=== PATIENT | male | born 1960 | race Caucasian/White ===

== ENCOUNTER → 2018-01-07 | Day surgery (SDC) | payer OTHER ==
[~2018-01-07] MED LIST: ALLERGY OTC PO; FENTANYL CITRATE/PF 100MCG/2 ML INJ ONE; FLOMAX PO; GLUCAGON FOR INJ 1 MG VIAL ONE; HYOSCYAMINE SULFATE 0.5 MG/ML AMP ONE; LIDOCAINE HCL 2% LOCAL INJ 5 ML SDV VIAL INJ ONE; MIDAZOLAM HCL 2 MG/2 ML VIAL ONE; PANTOPRAZOLE SO40 MG PO; PROPOFOL IV EMULSION 10 MG/ML 50 ML VIAL ONE; SIMVASTATIN PO
--- NOTE | 2018-01-07 13:34 | Diagnostic Imaging Report ---
EXAM: ABDOMINAL ULTRASOUND Date: 01/07/2018 11:45 AM Indication: Pain Comparison: None Technique: Sonographic evaluation of the abdomen. Color doppler was utilized to supplement evaluation. FINDINGS: LIVER: No focal lesion is identified. The liver measures 13.3 cm in the right midclavicular line. Echotexture is normal. BILIARY: Limited evaluation due to body habitus and overlying bowel gas. No distinct shadowing gallstones. The common bile duct measures 0.5 cm. PANCREAS: Largely obscured by bowel gas. KIDNEYS: Right: Measures 10.9 cm in length. Left: Measures 11.2 cm in length. Other: No hydronephrosis or solid mass lesion identified. SPLEEN: No splenomegaly. PERITONEUM: No free fluid. VASCULATURE: Aorta: Visualized portions appear unremarkable. Interior vena cava: Visualized portions appear unremarkable. Portal Vein: Nondilated with hepatopedal flow. IMPRESSION: Within limitations of body habitus and overlying bowel gas, no definite acute abnormality. Signed by: Dr. Chris Arana MD on 01/07/2018 1:31 PM
--- NOTE | 2018-01-07 17:23 | Operative Report ---
DATE OF PROCEDURE: January 07, 2018 REFERRING PHYSICIAN: Dr. Jovana Ghosh PROCEDURES PERFORMED 1. Esophagogastroduodenoscopy with biopsies. 2. Colonoscopy with polypectomy and biopsies. INDICATIONS FOR ESOPHAGOGASTRODUODENOSCOPY: Upper abdominal pain, heartburn, and indigestion. INDICATIONS FOR COLONOSCOPY: Colorectal cancer screening, history of colon polyps, and diarrhea, intermittent. MEDICATION: Patient was done under MAC. Please see anesthesiologist's note. PROCEDURE: With the patient in left lateral decubitus position, flexible fiberoptic Olympus gastroscope was introduced into the esophagus under direct visualization without any difficulty. There was some patchy erythema noted in the distal esophagus. A minute nodule was noted at the GE junction that was biopsied. The scope was then advanced with ease into the stomach, traversing a small sliding hiatal hernia. Mucosa overlying the antrum and the body revealed some patchy erythema and [id number] edema and biopsies were obtained and sent to stain for H. pylori. Pylorus appeared to be of normal contour and shape, was intubated with ease, and the scope was advanced all the way to the second portion of the duodenum. The scope was then withdrawn slowly. Mucosa overlying the proximal second portion appeared to be within normal limits. There some patchy intense erythema noted in the duodenal bulb. The scope was then withdrawn back into the stomach and retroflexed, and mucosa overlying the fundus and the cardia appeared to be within normal limits. The scope was then straightened out, was subsequently withdrawn. Patient tolerated the procedure well. IMPRESSION 1. Distal esophagitis. 2. Minute nodule gastroesophageal junction, biopsied. 3. Small sliding hiatal hernia. 4. Gastritis, biopsied. Biopsy sent to stain for Helicobacter pylori. 5. Duodenitis. PLAN: Follow up histology. Increase Protonix to 40 mg 1 p.o. a c b.i.d. Patient was then turned around. After adequate lubrication of the anal canal, flexible fiberoptic Olympus colonoscope was inserted into the rectum with ease and advanced all the way to the cecum. One polyp was snared from the cecum. The ileocecal valve was intubated and the scope was advanced into the terminal ileum. There were some patchy areas of intense erythema and moderate edema and biopsies were obtained. The scope was then withdrawn back into the colon. It was then withdrawn slowly. One polyp was hot biopsied from the ascending colon. The transverse appeared to be within normal limits. Some patchy mild inflammatory changes were noted in the left colon and multiple random biopsies were obtained. Also, there were some scattered minimal diverticular disease noted. The scope was then retroflexed into the distal rectum and small internal hemorrhoids were noted, none of which was actively bleeding. The scope was then straightened out, was subsequently withdrawn. Patient tolerated the procedure well. IMPRESSION 1. Ileitis, biopsied. 2. Cecal polyp, snared. 3. Ascending colon polyp, hot biopsied. 4. Mild patchy left-sided colitis. 5. Diverticulosis. 6. Internal hemorrhoids, none actively bleeding. PLAN: Follow up histology. Check IBD panel. Check sed rate and CRP. Initiate VSL #3 one p.o. daily. Patient might benefit from a followup colonoscopy in 3 years. Job#: [id number] PAT cc:DR. JOVANA GHOSH
== END | disposition home or self-care (01) ==
LOC: OR 10:40
PROVIDERS: ATTEND Internal Medicine Gastroenterology
DX: Z12.11 Encounter for screening for malignant neoplasm of colon (principal); D12.0 Benign neoplasm of cecum; D12.2 Benign neoplasm of ascending colon; K29.70 Gastritis, unspecified, without bleeding; K51.50 Left sided colitis without complications; K44.9 Diaphragmatic hernia without obstruction or gangrene; K29.80 Duodenitis without bleeding; K22.8 Other specified diseases of esophagus; K21.0 Gastro-esophageal reflux disease with esophagitis; K57.30 Diverticulosis of large intestine without perforation or abscess without bleeding; K59.00 Constipation, unspecified; K64.8 Other hemorrhoids; E78.00 Pure hypercholesterolemia, unspecified; G47.33 Obstructive sleep apnea (adult) (pediatric); F41.9 Anxiety disorder, unspecified; Z01.810 Encounter for preprocedural cardiovascular examination; Z68.33 Body mass index [BMI] 33.0-33.9, adult; Z80.0 Family history of malignant neoplasm of digestive organs
CPT/HCPCS: 36415; 43239; 45380; 45384; 45385; 76700; 85651; 86140; 86256; 86671; 93005; J1610; J1980; J2001; J2250; 45378